=== PATIENT | male | born 1980 ===

== ENCOUNTER 2018-11-30 10:20 | Emergency (ER) | payer OTHER ==
[2018-11-30 10:30] VITALS: BMI 43.8
[2018-11-30 10:33] VITALS: RESP 18; TEMP 99.4
[2018-11-30] MEDS ORDERED: Albuterol-Ipratrop 3 mg / 0.5 (3 ml) UD IH STA (10:48)
--- NOTE | 2018-11-30 11:53 | ED PDOC ---
Arrival/HPI - General Chief Complaint: Shortness Of Breath Time Seen by Provider: 11/30/18 10:37 Historian: Patient - History of Present Illness Narrative History of Present Illness (Text): 11/30/18 11:50 38yo morbidly obese male with pmhx of Asthma who present with complaint of chest congestion, nonproductive and SOB x 3days. States the cough improved and he ran out of his albuterol last night. Came to ED for SOB which is typical of his previous Asthma symptoms. He states he had subjective fever the past two days. Denies chest pain, diaphoresis, night sweats, sick contact, travel. He is not steroid dependent, never admitted or intubated secondary to Asthma. Past Medical History - Provider Review Nursing Documentation Reviewed: Yes - Infectious Disease Hx of Infectious Diseases: None - Cardiac Hx Cardiac Disorders: No - Pulmonary Hx Respiratory Disorders: Yes Hx Asthma: Yes - Neurological Hx Neurological Disorder: No - HEENT Hx HEENT Disorder: No - Renal Hx Renal Disorder: No - Endocrine/Metabolic Hx Endocrine Disorders: No - Hematological/Oncological Hx Blood Disorders: No - Integumentary Hx Dermatological Disorder: No - Musculoskeletal/Rheumatological Hx Musculoskeletal Disorders: No - Gastrointestinal Hx Gastrointestinal Disorders: No - Genitourinary/Gynecological Hx Genitourinary Disorders: No - Psychiatric Hx Psychophysiologic Disorder: No Hx Substance Use: Yes (marijuana daily) - Surgical History Hx Appendectomy: Yes - Anesthesia Hx Anesthesia: Yes Hx Anesthesia Reactions: No Hx Malignant Hyperthermia: No Family/Social History - Physician Review Nursing Documentation Reviewed: Yes Family/Social History: Unknown Family HX Smoking Status: Never Smoked Hx Alcohol Use: Yes Frequency of alcohol use: Socially Hx Substance Use: Yes (marijuana daily) Allergies/Home Meds Allergies/Adverse Reactions: Allergies avocado Allergy (Verified 11/30/18 10:31) RASH kiwi Allergy (Verified 11/30/18 10:31) RASH Review of Systems - Physician Review All systems were reviewed & negative as marked: Yes - Review of Systems Constitutional: Normal Eyes: Normal ENT: Normal Respiratory: SOB, Cough. absent: Sputum, Wheezing Cardiovascular: Normal Gastrointestinal: Normal Genitourinary Male: Normal Musculoskeletal: Normal Skin: Normal Neurological: Normal Endocrine: Normal Hemo/Lymphatic: Normal Psychiatric: Normal Physical Exam Vital Signs Reviewed: Yes Vital Signs Temp Pulse Resp BP Pulse Ox 11/30/18 10:37 18 97 11/30/18 10:32 99.4 F 68 18 128/67 96 Temperature: Afebrile Blood Pressure: Normal Pulse: Regular Respiratory Rate: Normal Appearance: Positive for: Well-Appearing, Non-Toxic, Comfortable Pain Distress: None Mental Status: Positive for: Alert and Oriented X 3 - Systems Exam Head: Present: Atraumatic, Normocephalic Pupils: Present: PERRL Extroacular Muscles: Present: EOMI Conjunctiva: Present: Normal Mouth: Present: Moist Mucous Membranes Neck: Present: Normal Range of Motion Respiratory/Chest: Present: Clear to Auscultation, Good Air Exchange, Wheezes (Mild expiratory wheezze at the bases). No: Respiratory Distress, Accessory Muscle Use Cardiovascular: Present: Regular Rate and Rhythm, Normal S1, S2. No: Murmurs Abdomen: No: Tenderness, Distention, Peritoneal Signs Back: Present: Normal Inspection Upper Extremity: Present: Normal Inspection. No: Cyanosis, Edema Lower Extremity: Present: Normal Inspection. No: Edema Neurological: Present: GCS=15, CN II-XII Intact, Speech Normal Skin: Present: Warm, Dry, Normal Color. No: Rashes Psychiatric: Present: Alert, Oriented x 3, Normal Insight, Normal Concentration Medical Decision Making ED Course and Treatment: 11/30/18 12:05 PT present to ED for stated history. He was not hypoxic and in no distress. He had mild expiratory wheeze at the bases On re evaluation s/p treatment his lung was CTA b/l. Rapid flu was negative Per the solder technician he declined Chest xray He was ambulatory and talking in full sentence without any distress. He was DC home with prednisone/albuterol. Referred to the clinic - Medication Orders Current Medication Orders: Discontinued Medications Albuterol/Ipratropium (Duoneb 3 Mg/0.5 Mg (3 Ml) Ud) 3 ml IH Q15M STA Stop: 11/30/18 10:49 Last Admin: 11/30/18 10:45 Dose: 3 ml Prednisone (Prednisone Tab) 60 mg PO STAT ONE Stop: 11/30/18 10:49 Last Admin: 11/30/18 10:59 Dose: 60 mg Disposition/Present on Arrival - Present on Arrival Any Indicators Present on Arrival: No History of DVT/PE: No History of Uncontrolled Diabetes: No Urinary Catheter: No History of Decub. Ulcer: No History Surgical Site Infection Following: None - Disposition Have Diagnosis and Disposition been Completed?: Yes Diagnosis: Asthma attack Disposition: HOME/ ROUTINE Disposition Time: 11:55 Patient Plan: Discharge Patient Problems: Current Active Problems Problem Status Onset Asthma attack Acute Condition: STABLE Discharge Instructions (ExitCare): Asthma in Adults Additional Instructions: Follow up with your Doctor return to ED for any new or worsening symptoms Prescriptions: Albuterol HFA [Ventolin HFA 90 mcg/actuation (8 g)] 2 puff IH [id number] #1 puff Albuterol 0.083% [Albuterol 0.083% Inhal Julia (2.5 mg/3 ml) UD] 2.5 mg IH Q6 #1 neb predniSONE [Prednisone] 20 mg PO BID #6 tab Referrals: PCP,NO [Primary Care Provider] - Follow up with primary Daisy Persaud MD [Medical Doctor] - Follow up with primary Forms: [employer] ([employer])
[2018-11-30 12:11] VITALS: BP 124/73; PULSE 76; O2SAT 98
== END 2018-11-30 12:02 | disposition home or self-care (01) ==
LOC: ED 10:20
DX: J45.909 Unspecified asthma, uncomplicated (principal)